=== PATIENT | male | born 1945 | race Caucasian/White ===

== ENCOUNTER 2019-12-07 13:03 | Emergency (ER) | payer OTHER, BC ==
[2019-12-07] MEDS ORDERED: ONDANSETRON 4 MG/2 ML VIAL ONE (13:14)
[2019-12-07] MEDS ORDERED: FENTANYL CITR 100 MCG/2 ML ONE ×2 (13:14→15:51)
[2019-12-07 13:30] LABS: Absolute Lymphocytes (CBC) 1.5 K/uL (0.7-4.9); Basophils % 0.6 % (0-1.3); Hematocrit 45.7 % (39.6-49.0); Lymphocytes % 14.7 % (15.3-44.8); MPV 7.5 fL (7.6-11.3); RBC Red Blood Cell Count 4.57 M/uL (4.33-5.43)
[2019-12-07 13:42] LABS: Potassium 4.2 mmol/L (3.5-5.1)
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
--- NOTE | 2019-12-07 14:27 | RAD REPORT ---
EXAM DESCRIPTION: RAD - Pelvis - 12/07/2019 1:34 pm CLINICAL HISTORY: Pelvic pain status post injury FINDINGS: Minimally displaced fracture involves the right ilium extending into right acetabulum No dislocation
--- NOTE | 2019-12-07 14:29 | RAD REPORT ---
EXAM DESCRIPTION: [place] Single View12/07/2019 1:33 pm CLINICAL HISTORY: Chest pain COMPARISON: none FINDINGS: Small to moderate right pneumothorax. Mild right basilar atelectasis Minimally displaced fracture right posterior rib. Heart is borderline enlarged Elevation left hemidiaphragm IMPRESSION: Small to moderate right pneumothorax
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
== END 2019-12-07 15:48 | disposition short-term general hospital (02) ==
LOC: ER 13:03
DX: S22.41XA Multiple fractures of ribs, right side, initial encounter for closed fracture (principal); J93.9 Pneumothorax, unspecified; S32.401A Unspecified fracture of right acetabulum, initial encounter for closed fracture; V20.0XXA Motorcycle driver injured in collision with pedestrian or animal in nontraffic accident, initial encounter
CPT/HCPCS: 85025; 80048; 36415; 86900; 86850; 86901; 71260; 74177; 71045; 72170; 96375; 96374; 99285; Q9967; J3010 ×2; J2405